=== PATIENT | male | born 1990 | race African-American/Black ===

== ENCOUNTER → 2017-02-16 | Outpatient (CLI) | payer OTHER | END | disposition home or self-care (01) | LOC: US 16:00 → RD 16:03 → US 16:03 | PROC: BH4CZZZ Ultrasonography of Head and Neck (ICD-10-PCS; principal; 2017-02-16) | PROC: BW211ZZ Computerized Tomography (CT Scan) of Abdomen and Pelvis using Low Osmolar Contrast (ICD-10-PCS; 2017-02-16) | DX: R22.0 Localized swelling, mass and lump, head (principal); R10.32 Left lower quadrant pain; K59.00 Constipation, unspecified ==